=== PATIENT | male | born 1960 | race Caucasian/White ===

== ENCOUNTER → 2019-12-31 10:59 | Outpatient (CLI) | payer OTHER, MEDICARE, SELFPAY ==
[2020-01-02 06:16] LABS: COVID19 Sendout Not Detected (Not Detect)
== END ==
PROVIDERS: Family Provider Family Medicine; PCP Family Medicine; Visit Provider Physician Assistant
DX: Z11.59 Encounter for screening for other viral diseases (principal)
CPT/HCPCS: 87635

== ENCOUNTER → 2021-07-13 09:07 | Outpatient (CLI) | payer OTHER, MEDICARE, SELFPAY | PROVIDERS: Family Provider Family Medicine; Referring Provider Family Medicine; Visit Provider Family Medicine | DX: Z00.00 Encounter for general adult medical examination without abnormal findings (principal) | CPT/HCPCS: 36415 ==

== ENCOUNTER 2021-08-21 11:46 | Emergency (ER) | payer OTHER, MEDICARE, SELFPAY ==
[2021-08-21] VITALS (7 sets, daily range): BP systolic 127–155; BP diastolic 78–98; PULSE 91–110; RESP 15–24; TEMP 36.4; O2SAT 96–99; BMI 34.8
--- NOTE | 2021-08-21 12:37 | DI.CT.S_ITS ---
PROCEDURE: CT HEAD/BRAIN WO CON INDICATIONS: covid + sinc 08/10, double vision x 48 hours TECHNIQUE: Noncontrast 4.5 mm thick angled axial sections acquired from the foramen magnum to the vertex, with coronal and sagittal reformats. For radiation dose reduction, the following was used: automated exposure control, adjustment of mA and/or kV according to patient size. COMPARISON: None. FINDINGS: Image quality: Excellent. CSF spaces: Basal cisterns are patent. No extra-axial fluid collections. Ventricles are normal in size and shape. Incidental note is made of the presence of prominent calcification involving the anterior falx. Brain: No midline shift. No intracranial masses or hemorrhage. Barba-white matter interface is normal. Skull and face: Calvarium and visualized facial bones are intact, without suspicious lesions. Sinuses: Visualized sinuses and mastoids are clear. IMPRESSION: No evidence of acute intracranial process. Dictated by: Alf Navarro M.D. on 08/21/2021 at 12:58 Approved by: Alf Navarro M.D. on 08/21/2021 at 12:59
[2021-08-21 13:01] LABS: INR 1.1 (0.9-1.3); Prothrombin Time 12.1 SECONDS (10.1-12.7)
[2021-08-21 13:04] LABS: PTT Partial Thromboplastin Tim 35 SECONDS (26.4-36.2)
[2021-08-21 13:05] LABS: Alanine Aminotransferase 35 IU/L (<50); Albumin 4.6 g/dL (3.5-5.0); Albumin Globulin Ratio 1.4 (1.0-2.8); Alkaline Phosphatase 80 U/L (38-126); Aspartate Aminotransferase 28 IU/L (17-59); BUN Creatinine Ratio 12.3 (6-22); Bilirubin Total 0.7 mg/dL (0.2-1.3); Blood Urea Nitrogen 13 mg/dL (9-20); Calcium 8.8 mg/dL (8.4-10.2); Carbon Dioxide 27 mmol/L (22-32); Chloride 104 mmol/L (98-107); Creatine Kinase 63 U/L (55-170); Estimated Glomerular Filt Rate > 60 mL/min (>60); Globulin 3.2 g/dL (1.7-4.1); Glucose 307 mg/dL (80-110); HEMOLYSIS 17 (0-50); Potassium 4.5 mmol/L (3.4-5.1); Sodium 138 mmol/L (137-145); Total Protein 7.8 g/dL (6.3-8.2)
[2021-08-21 13:11] LABS: Add Manual Diff / Slide Review NO; Basophils Absolute Auto 100 /uL (0-100); Basophils Percent Auto 1.2 % (0-2); Eosinophils Absolute Auto 100 /uL (0-450); Eosinophils Percent Auto 1.5 % (2-4); Hematocrit 46.3 % (41-53); Hemoglobin 16.4 g/dL (13.5-17.5); Lymphocytes Absolute Auto 2000 /uL (1100-4500); Lymphocytes Percent Auto 22.4 % (25-40); Mean Corpuscular HGB Conc 35.3 % (30-36); Mean Corpuscular Hemoglobin 29.7 PG (26-34); Mean Corpuscular Volume 83.9 fL (80-100); Monocytes Absolute Auto 600 /uL (0-900); Monocytes Percent Auto 7.4 % (3-14); Neutrophils Absolute Auto 5900 /uL (1500-7000); Neutrophils Percent Auto 67.5 % (50-75); Platelet Count 207 X10^3/uL (150-400); Red Blood Cell Count 5.52 X10^6/uL (4.5-5.9); Red Cell Distribution Width 13.8 % (11.6-14.8); White Blood Cell Count 8.7 X10^3/uL (4.5-11.0)
[2021-08-21 13:17] LABS: Troponin I < 0.012 ng/mL (0.01-0.034)
[2021-08-21 16:06] LABS: UR Morphine/Opiate cutoff 300 Negative (Negative); Ur Creatinine Normal (Normal); Ur Specific Gravity Normal (Normal); Urine Amphetamines Negative (Negative); Urine Barbiturates Negative (Negative); Urine Benzodiazepines Negative (Negative); Urine Cocaine Negative (Negative); Urine MDMA Negative (Negative); Urine Methadone Negative (Negative); Urine Methamphetamines Negative (Negative); Urine Oxycodone Positive (Negative); Urine Phencyclidine Negative (Negative); Urine Tetrahydrocannabinol Negative (Negative); Urine Tricyclic Antidepressant Negative (Negative); Urine pH Normal (Normal)
[2021-08-21 16:08] LABS: C-Reactive Protein Quant 0.9 mg/dL (<1.0)
--- NOTE | 2021-08-21 16:15 | DI.MRI.S_ITS ---
PROCEDURE: MR STROKE Pre- and post-contrast brain MRI, non-contrast brain MR angiogram, pre- and postcontrast neck MR angiogram INDICATIONS: 3 days of double vision, negative head CT TECHNIQUE: Brain: Noncontrast axial T1 spin echo, axial T2 fast spin echo, sagittal and axial FLAIR, coronal T2 fast spin echo, axial gradient echo, axial diffusion and ADC through the brain. After the administration of contrast, axial 3D VIBE of the cranial vasculature and brain. Brain MRA: Non-contrast 3-D time of flight MR angiogram, with multiple gvllnlm-evarhiicd-mmeqovzvtl (MIP) reformats performed. Neck MRA: Axial and sagittal TruFISP through the neck. Coronal dynamic MR angiogram during administration of contrast in the arterial and venous phases, with 3-dimenstional qgajcgm-vqnbfkxzp-bgquertake (MIP) reformats constructed from subtraction images. COMPARISON: None. FINDINGS: Image quality: Excellent. BRAIN: CSF spaces: Ventricles are normal in size and shape. Basal cisterns are patent. No extra-axial fluid collections. Brain: No intracranial bleeds or mass effects. Barba-white matter interface is normal. Diffusion weighted images show no acute ischemic insults. Brainstem appears normal. Normal intravascular flow voids are present. No abnormal intracranial enhancement. Skull and face: Calvarial marrow signal is normal. Orbits appear normal. Sinuses: Sinuses and mastoids are clear. BRAIN MR ANGIOGRAM: Anterior circulation: Intracranial internal carotid arteries are normal in size and enhancement. The flow within the paired anterior cerebral arteries is normal and symmetric. The flow within the middle cerebral arteries is normal and symmetric. The anterior communicating artery is seen. No stenoses, occlusions, or aneurysms. Posterior circulation: The visualized portions of the vertebral arteries demonstrate normal caliber, and join to form a normal appearing basilar artery. 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 The P2 segment is supplied by a widely patent posterior communicating artery. Remainder of the distal vasculature unremarkable. No stenoses, occlusions, or aneurysms. NECK MR ANGIOGRAM: Carotids: Great vessels demonstrate a conventional anatomy as they arise from the aortic arch. The origins of the common carotid arteries appear patent. The calibers and courses of both common carotid arteries are normal. The bifurcation regions appear normal bilaterally. The internal carotid arteries demonstrate normal course and caliber. Posterior circulation: The origins of the vertebral arteries appear patent. More superior portions of both vertebral arteries demonstrate normal course and caliber, and join to form a normal appearing basilar artery. Miscellaneous: Subclavian arteries appear patent. Pre-contrast images through the neck show no soft tissue abnormalities. IMPRESSION: 1. Unremarkable MRI of the brain without acute infarct, hemorrhage or mass lesion. 2. Normal MR angiogram of the brain without large vessel occlusion, aneurysm or vascular malformation 3. Normal MR angiogram of the neck. No stenosis. Approved by: Javid Dominguez M.D. on 08/21/2021 at 17:02
[2021-08-21 16:16] LABS: Erythrocyte Sedimentation Rate 4 MM/HR (0-15)
--- NOTE | 2021-08-21 16:20 | ED.NEUROSD ---
HPI - Neuro Symptoms/Deficit <Ethan Jimenes PA-C - Last Filed: 08/21/21 19:25> General Chief Complaint: Neuro Symptoms/Deficit Stated Complaint: phys. referred; covid and seeing double 3 days Time Seen by Provider: 08/21/21 15:35 Source: patient Mode of arrival: Ambulatory History of Present Illness HPI Narrative: This is a 61-year-old male presenting to the emergency department due to 3 days of double vision. States that the double vision is only present when he uses both eyes but when he closes 1 eye the double vision resolves. Patient states that he was diagnosed with COVID 11 days ago as well. Patient denies any headaches, slurred speech, weakness, dizziness, or any other concerning signs or symptoms. States he has a history of a ?tumor in the head? but was unable to elaborate. On Anticoagulants: No Related Data Home Medications Medication Instructions Recorded Confirmed lisinopril 20 mg tablet 20 mg PO DAILY 01/08/20 07/09/21 oxycodone 10 mg tablet,crush 10 mg PO ONCE tab 01/08/20 07/09/21 resistant,extended release 12 hr (OxyContin) oxycodone 5 mg tablet 5 mg PO BID PRN 01/08/20 07/09/21 tamsulosin 0.4 mg capsule 0.4 mg PO BEDTIME 01/08/20 07/09/21 Respironics DreamStation BIPAP 07/09/21 07/09/21 insulin glargine 100 unit/mL (3 50 unit SUBCUT BID ml 07/09/21 07/09/21 mL) subcutaneous pen Allergies Allergy/AdvReac Type Severity Reaction Status Date / Time No Known Drug Allergies Allergy Verified 08/21/21 12:36 Review of Systems <Ethan Jimenes PA-C - Last Filed: 08/21/21 19:25> Review of Systems Narrative: See HPI Hematologic/Lymphatic On Anticoagulants: No Patient History <Ethan Jimenes PA-C - Last Filed: 08/21/21 19:25> Medical History 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 Well-developed patient, in mild distress. HEAD: Atraumatic. Normocephalic. EYES: Pupils equal round and reactive. Extraocular motions intact. No scleral icterus. No injection or drainage. Very slightly delayed tracking of the right pupil although no obvious abnormalities noted. ENT: Nose without bleeding, purulent drainage. Throat without erythema, tonsillar hypertrophy or exudate. Airway patent. NECK: Trachea midline. Non tender CARDIOVASCULAR: Regular rate and rhythm without murmurs, gallops, or rubs. RESPIRATORY: Clear to auscultation. Breath sounds equal bilaterally. No wheezes, rales, or rhonchi. GASTROINTESTINAL: Abdomen soft, non-tender, nondistended. EXTREMITIES: No edema or joint tenderness. BACK: Nontender without deformity or crepitance. No flank tenderness. NEURO: AOx3. Cranial nerves 2-12 intact. NIH score 0. SKIN: No rash or erythema of visible areas Initial Vital Signs Initial Vital Signs: Vital Signs Temperature 97.6 F 08/21/21 12:31 Pulse Rate 110 H 08/21/21 12:31 Respiratory Rate 24 08/21/21 12:31 Blood Pressure 148/98 H 08/21/21 12:31 Pulse Oximetry 98 08/21/21 12:31 <Shellie Carmichael DO - Last Filed: 08/21/21 20:39> Initial Vital Signs Initial Vital Signs: Vital Signs Temperature 97.6 F 08/21/21 12:31 Pulse Rate 110 H 08/21/21 12:31 Respiratory Rate 24 08/21/21 12:31 Blood Pressure 148/98 H 08/21/21 12:31 Pulse Oximetry 98 08/21/21 12:31 Course <Ethan Jimenes PA-C - Last Filed: 08/21/21 19:25> Orders Ordered: ED Orders 08/21/21 12:37 CT head/brain wo con Stat EKG-12 Lead Stat 08/21/21 12:43 CRP [C-Reactive Protein Quant] Stat Complete Blood Count AUTO DIFF Stat Comprehensive Metabolic Panel Stat ESR [Erythrocyte Sedimentation Rate] Stat Partial Thromboplastin Time Stat Prothrombin Time INR Stat Troponin & CK Cardiac Panel Stat 08/21/21 15:46 Urine Drug Screen, Rapid Stat 08/21/21 16:15 MR stroke Stat Vital Signs Vital signs: Vital Signs - 8 hr 08/21/21 14:55 08/21/21 15:00 08/21/21 15:38 Pulse Rate 98 H 100 H 97 H Respiratory Rate Blood Pressure Pulse Oximetry 98 96 99 08/21/21 15:40 08/21/21 16:00 08/21/21 16:30 Pulse Rate 97 H 96 H 91 H Respiratory Rate 15 15 Blood Pressure 155/96 H 136/89 127/78 Pulse Oximetry 99 98 98 <Shellie Carmichael DO - Last Filed: 08/21/21 20:39> Orders Ordered: ED Orders 08/21/21 12:37 CT head/brain wo con Stat EKG-12 Lead Stat 08/21/21 12:43 CRP [C-Reactive Protein Quant] Stat Complete Blood Count AUTO DIFF Stat Comprehensive Metabolic Panel Stat ESR [Erythrocyte Sedimentation Rate] Stat Partial Thromboplastin Time Stat Prothrombin Time INR Stat Troponin & CK Cardiac Panel Stat 08/21/21 15:46 Urine Drug Screen, Rapid Stat 08/21/21 16:15 MR stroke Stat Vital Signs Vital signs: Vital Signs - 8 hr 08/21/21 14:55 08/21/21 15:00 08/21/21 15:38 Pulse Rate 98 H 100 H 97 H Respiratory Rate Blood Pressure Pulse Oximetry 98 96 99 08/21/21 15:40 08/21/21 16:00 08/21/21 16:30 Pulse Rate 97 H 96 H 91 H Respiratory Rate 15 15 Blood Pressure 155/96 H 136/89 127/78 Pulse Oximetry 99 98 98 MDM - Neuro Symptoms/Deficit <Ethan Jimenes PA-C - Last Filed: 08/21/21 19:25> Lab Data Result diagrams: 08/21/21 12:43 08/21/21 12:43 Labs: Lab Results 08/21/21 08/21/21 08/21/21 Range/Units 12:43 12:43 12:43 WBC 8.7 (4.5-11.0) X10^3/uL RBC 5.52 (4.5-5.9) X10^6/uL Hgb 16.4 (13.5-17.5) g/dL Hct 46.3 (41-53) % MCV 83.9 (80-100) fL MCH 29.7 (26-34) PG MCHC 35.3 (30-36) % RDW 13.8 (11.6-14.8) % Plt Count 207 (150-400) X10^3/uL Neut % (Auto) 67.5 (50-75) % Lymph % (Auto) 22.4 L (25-40) % [place] % (Auto) 7.4 (3-14) % Eos % (Auto) 1.5 L (2-4) % Baso % (Auto) 1.2 (0-2) % Neut # (Auto) 5900 (8979-6063) /uL Lymph # (Auto) 2000 (9785-3496) /uL [place] # (Auto) 600 (0-900) /uL Eos # (Auto) 100 (0-450) /uL Baso # (Auto) 100 (0-100) /uL ESR (0-15) MM/HR PT 12.1 (10.1-12.7) SECONDS INR 1.1 (0.9-1.3) APTT 35 (26.4-36.2) SECONDS Sodium 138 (137-145) mmol/L Potassium 4.5 (3.4-5.1) mmol/L Chloride 104 (98-107) mmol/L Carbon Dioxide 27 (22-32) mmol/L BUN 13 (9-20) mg/dL Creatinine 1.06 (0.66-1.25) mg/dL Estimated GFR > 60 (>60) mL/min BUN/Creatinine Ratio 12.3 (6-22) Glucose 307 H (80-110) mg/dL Calcium 8.8 (8.4-10.2) mg/dL Total Bilirubin 0.7 (0.2-1.3) mg/dL AST 28 (17-59) IU/L ALT 35 (<50) IU/L Alkaline Phosphatase 80 (38-126) U/L Total Creatine Kinase 63 (55-170) U/L CK-MB (CK-2) TNP CK-MB (CK-2) Rel Index TNP Troponin I < 0.012 (0.01-0.034) ng/mL C-Reactive Protein (<1.0) mg/dL Total Protein 7.8 (6.3-8.2) g/dL Albumin 4.6 (3.5-5.0) g/dL Globulin 3.2 (1.7-4.1) g/dL Albumin/Globulin Ratio 1.4 (1.0-2.8) U Opiates 300ng/mL cut (Negative) Ur Oxycodone Screen (Negative) Urine Methadone Screen (Negative) Ur Barbiturates Screen (Negative) U Tricyclic Antidepress (Negative) Ur Phencyclidine Scrn (Negative) Ur Amphetamines Screen (Negative) U Methamphetamines Scrn (Negative) Ur MDMA Scrn (Ecstasy) (Negative) U Benzodiazepines Scrn (Negative) Urine Cocaine Screen (Negative) U Marijuana (THC) Screen (Negative) 08/21/21 08/21/21 08/21/21 Range/Units 12:43 12:43 15:46 WBC (4.5-11.0) X10^3/uL RBC (4.5-5.9) X10^6/uL Hgb (13.5-17.5) g/dL Hct (41-53) % MCV (80-100) fL MCH (26-34) PG MCHC (30-36) % RDW (11.6-14.8) % Plt Count (150-400) X10^3/uL Neut % (Auto) (50-75) % Lymph % (Auto) (25-40) % [place] % (Auto) (3-14) % Eos % (Auto) (2-4) % Baso % (Auto) (0-2) % Neut # (Auto) (6477-6086) /uL Lymph # (Auto) (2248-8319) /uL [place] # (Auto) (0-900) /uL Eos # (Auto) (0-450) /uL Baso # (Auto) (0-100) /uL ESR 4 (0-15) MM/HR PT (10.1-12.7) SECONDS INR (0.9-1.3) APTT (26.4-36.2) SECONDS Sodium (137-145) mmol/L Potassium (3.4-5.1) mmol/L Chloride (98-107) mmol/L Carbon Dioxide (22-32) mmol/L BUN (9-20) mg/dL Creatinine (0.66-1.25) mg/dL Estimated GFR (>60) mL/min BUN/Creatinine Ratio (6-22) Glucose (80-110) mg/dL Calcium (8.4-10.2) mg/dL Total Bilirubin (0.2-1.3) mg/dL AST (17-59) IU/L ALT (<50) IU/L Alkaline Phosphatase (38-126) U/L Total Creatine Kinase (55-170) U/L CK-MB (CK-2) CK-MB (CK-2) Rel Index Troponin I (0.01-0.034) ng/mL C-Reactive Protein 0.9 (<1.0) mg/dL Total Protein (6.3-8.2) g/dL Albumin (3.5-5.0) g/dL Globulin (1.7-4.1) g/dL Albumin/Globulin Ratio (1.0-2.8) U Opiates 300ng/mL cut Negative (Negative) Ur Oxycodone Screen Positive H (Negative) Urine Methadone Screen Negative (Negative) Ur Barbiturates Screen Negative (Negative) U Tricyclic Antidepress Negative (Negative) Ur Phencyclidine Scrn Negative (Negative) Ur Amphetamines Screen Negative (Negative) U Methamphetamines Scrn Negative (Negative) Ur MDMA Scrn (Ecstasy) Negative (Negative) U Benzodiazepines Scrn Negative (Negative) Urine Cocaine Screen Negative (Negative) U Marijuana (THC) Screen Negative (Negative) Urine Dip Bedside Urine Glucose 500 mg/dl Bedside Urine Bilirubin - Negative Bedside Urine Ketone - Negative Urine Specific [place] 1.025 Bedside Urine Occult Blood - Negative Bedside Urine pH 6.0 Bedside Urine Protein - Negative Bedside Urine Urobilinogen - Negative Bedside Urine Nitrite - Negative Bedside Urine Leukocytes - Negative Esterase Imaging Data CT scan - head: Radiologist's Impression: [address] [id number] Resonance ReportSigned Patient: Joni Smiley NAFISA#: [id number]: 1960cct:[id number]/Sex: 61 / MDate of Service: 08/21/21Loc: EDAccession Number: [id number] Procedure: MR stroke Ordering Provider: Ethan Jimenes P.A-C PROCEDURE: MR STROKE Pre- and post-contrast brain MRI, non-contrast brain MR angiogram, pre- and postcontrast neck MR angiogram INDICATIONS: 3 days of double vision, negative head CT TECHNIQUE: Brain: Noncontrast axial T1 spin echo, axial T2 fast spin echo, sagittal and axial FLAIR, coronal T2 fast spin echo, axial gradient echo, axial diffusion and ADC through the brain. After the administration of contrast, axial 3D VIBE of the cranial vasculature and brain. Brain MRA: Non-contrast 3-D time of flight MR angiogram, with multiple qkkklza-mkhblsura-himlkgmmsl (MIP) reformats performed. Neck MRA: Axial and sagittal TruFISP through the neck. Coronal dynamic MR angiogram during administration of contrast in the arterial and venous phases, with 3-dimenstional qhpttws-cnogvqokh-nngztwrdwk (MIP) reformats constructed from subtraction images. COMPARISON: None. FINDINGS: Image quality: Excellent. BRAIN: CSF spaces: Ventricles are normal in size and shape. Basal cisterns are patent. No extra-axial fluid collections. Brain: No intracranial bleeds or mass effects. Barba-white matter interface is normal. Diffusion weighted images show no acute ischemic insults. Brainstem appears normal. Normal intravascular flow voids are present. No abnormal intracranial enhancement. Skull and face: Calvarial marrow signal is normal. Orbits appear normal. Sinuses: Sinuses and mastoids are clear. BRAIN MR ANGIOGRAM: Anterior circulation: Intracranial internal carotid arteries are normal in size and enhancement. The flow within the paired anterior cerebral arteries is normal and symmetric. The flow within the middle cerebral arteries is normal and symmetric. The anterior communicating artery is seen. No stenoses, occlusions, or aneurysms. Posterior circulation: The visualized portions of the vertebral arteries demonstrate normal caliber, and join to form a normal appearing basilar artery. 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 The P2 segment is supplied by a widely patent posterior communicating artery. Remainder of the distal vasculature unremarkable. No stenoses, occlusions, or aneurysms. NECK MR ANGIOGRAM: Carotids: Great vessels demonstrate a conventional anatomy as they arise from the aortic arch. The origins of the common carotid arteries appear patent. The calibers and courses of both common carotid arteries are normal. The bifurcation regions appear normal bilaterally. The internal carotid arteries demonstrate normal course and caliber. Posterior circulation: The origins of the vertebral arteries appear patent. More superior portions of both vertebral arteries demonstrate normal course and caliber, and join to form a normal appearing basilar artery. Miscellaneous: Subclavian arteries appear patent. Pre-contrast images through the neck show no soft tissue abnormalities. IMPRESSION: 1. Unremarkable MRI of the brain without acute infarct, hemorrhage or mass lesion. 2. Normal MR angiogram of the brain without large vessel occlusion, aneurysm or vascular malformation 3. Normal MR angiogram of the neck. No stenosis. Approved by: Javid Dominguez M.D. on 08/21/2021 at 17:[address] [id number] Scan ReportSigned Patient: Joni Smiley R#: [id number]: 9Acct:[id number]/Sex: 61 / MDate of Service: 08/21/21Loc: EDAccession Number: [id number] Procedure: CT head/brain wo con Ordering Provider: Shellie Carmichael D.O. PROCEDURE: CT HEAD/BRAIN WO CON INDICATIONS: covid + sinc 08/10, double vision x 48 hours TECHNIQUE: Noncontrast 4.5 mm thick angled axial sections acquired from the foramen magnum to the vertex, with coronal and sagittal reformats. For radiation dose reduction, the following was used: automated exposure control, adjustment of mA and/or kV according to patient size. COMPARISON: None. FINDINGS: Image quality: Excellent. CSF spaces: Basal cisterns are patent. No extra-axial fluid collections. Ventricles are normal in size and shape. Incidental note is made of the presence of prominent calcification involving the anterior falx. Brain: No midline shift. No intracranial masses or hemorrhage. Barba-white matter interface is normal. Skull and face: Calvarium and visualized facial bones are intact, without suspicious lesions. Sinuses: Visualized sinuses and mastoids are clear. IMPRESSION: No evidence of acute intracranial process. Dictated by: Alf Navarro M.D. on 08/21/2021 at 12:58 Approved by: Alf Navarro M.D. on 08/21/2021 at 12:59 [facility] Narrative Medical decision making narrative: This is a 61-year-old male presents to the emergency department due to 3 days of binocular diplopia. CT head negative for acute stroke. MRI of the head and neck ordered which showed no acute abnormalities. Attending physician, Dr. Carmichael, spoke with Dr. Arcos, ophthalmology who advise for outpatient follow-up on Tuesday for further evaluation. Lab work unremarkable. <Shellie Alvino Carmichael, DO - Last Filed: 08/21/21 20:39> Lab Data Labs: Lab Results 08/21/21 08/21/21 08/21/21 Range/Units 12:43 12:43 12:43 WBC 8.7 (4.5-11.0) X10^3/uL RBC 5.52 (4.5-5.9) X10^6/uL Hgb 16.4 (13.5-17.5) g/dL Hct 46.3 (41-53) % MCV 83.9 (80-100) fL MCH 29.7 (26-34) PG MCHC 35.3 (30-36) % RDW 13.8 (11.6-14.8) % Plt Count 207 (150-400) X10^3/uL Neut % (Auto) 67.5 (50-75) % Lymph % (Auto) 22.4 L (25-40) % [place] % (Auto) 7.4 (3-14) % Eos % (Auto) 1.5 L (2-4) % Baso % (Auto) 1.2 (0-2) % Neut # (Auto) 5900 (1872-6917) /uL Lymph # (Auto) 2000 (9646-8055) /uL [place] # (Auto) 600 (0-900) /uL Eos # (Auto) 100 (0-450) /uL Baso # (Auto) 100 (0-100) /uL ESR (0-15) MM/HR PT 12.1 (10.1-12.7) SECONDS INR 1.1 (0.9-1.3) APTT 35 (26.4-36.2) SECONDS Sodium 138 (137-145) mmol/L Potassium 4.5 (3.4-5.1) mmol/L Chloride 104 (98-107) mmol/L Carbon Dioxide 27 (22-32) mmol/L BUN 13 (9-20) mg/dL Creatinine 1.06 (0.66-1.25) mg/dL Estimated GFR > 60 (>60) mL/min BUN/Creatinine Ratio 12.3 (6-22) Glucose 307 H (80-110) mg/dL Calcium 8.8 (8.4-10.2) mg/dL Total Bilirubin 0.7 (0.2-1.3) mg/dL AST 28 (17-59) IU/L ALT 35 (<50) IU/L Alkaline Phosphatase 80 (38-126) U/L Total Creatine Kinase 63 (55-170) U/L CK-MB (CK-2) TNP CK-MB (CK-2) Rel Index TNP Troponin I < 0.012 (0.01-0.034) ng/mL C-Reactive Protein (<1.0) mg/dL Total Protein 7.8 (6.3-8.2) g/dL Albumin 4.6 (3.5-5.0) g/dL Globulin 3.2 (1.7-4.1) g/dL Albumin/Globulin Ratio 1.4 (1.0-2.8) U Opiates 300ng/mL cut (Negative) Ur Oxycodone Screen (Negative) Urine Methadone Screen (Negative) Ur Barbiturates Screen (Negative) U Tricyclic Antidepress (Negative) Ur Phencyclidine Scrn (Negative) Ur Amphetamines Screen (Negative) U Methamphetamines Scrn (Negative) Ur MDMA Scrn (Ecstasy) (Negative) U Benzodiazepines Scrn (Negative) Urine Cocaine Screen (Negative) U Marijuana (THC) Screen (Negative) 08/21/21 08/21/21 08/21/21 Range/Units 12:43 12:43 15:46 WBC (4.5-11.0) X10^3/uL RBC (4.5-5.9) X10^6/uL Hgb (13.5-17.5) g/dL Hct (41-53) % MCV (80-100) fL MCH (26-34) PG MCHC (30-36) % RDW (11.6-14.8) % Plt Count (150-400) X10^3/uL Neut % (Auto) (50-75) % Lymph % (Auto) (25-40) % [place] % (Auto) (3-14) % Eos % (Auto) (2-4) % Baso % (Auto) (0-2) % Neut # (Auto) (6703-4135) /uL Lymph # (Auto) (9937-1242) /uL [place] # (Auto) (0-900) /uL Eos # (Auto) (0-450) /uL Baso # (Auto) (0-100) /uL ESR 4 (0-15) MM/HR PT (10.1-12.7) SECONDS INR (0.9-1.3) APTT (26.4-36.2) SECONDS Sodium (137-145) mmol/L Potassium (3.4-5.1) mmol/L Chloride (98-107) mmol/L Carbon Dioxide (22-32) mmol/L BUN (9-20) mg/dL Creatinine (0.66-1.25) mg/dL Estimated GFR (>60) mL/min BUN/Creatinine Ratio (6-22) Glucose (80-110) mg/dL Calcium (8.4-10.2) mg/dL Total Bilirubin (0.2-1.3) mg/dL AST (17-59) IU/L ALT (<50) IU/L Alkaline Phosphatase (38-126) U/L Total Creatine Kinase (55-170) U/L CK-MB (CK-2) CK-MB (CK-2) Rel Index Troponin I (0.01-0.034) ng/mL C-Reactive Protein 0.9 (<1.0) mg/dL Total Protein (6.3-8.2) g/dL Albumin (3.5-5.0) g/dL Globulin (1.7-4.1) g/dL Albumin/Globulin Ratio (1.0-2.8) U Opiates 300ng/mL cut Negative (Negative) Ur Oxycodone Screen Positive H (Negative) Urine Methadone Screen Negative (Negative) Ur Barbiturates Screen Negative (Negative) U Tricyclic Antidepress Negative (Negative) Ur Phencyclidine Scrn Negative (Negative) Ur Amphetamines Screen Negative (Negative) U Methamphetamines Scrn Negative (Negative) Ur MDMA Scrn (Ecstasy) Negative (Negative) U Benzodiazepines Scrn Negative (Negative) Urine Cocaine Screen Negative (Negative) U Marijuana (THC) Screen Negative (Negative) Urine Dip Bedside Urine Glucose 500 mg/dl Bedside Urine Bilirubin - Negative Bedside Urine Ketone - Negative Urine Specific [place] 1.025 Bedside Urine Occult Blood - Negative Bedside Urine pH 6.0 Bedside Urine Protein - Negative Bedside Urine Urobilinogen - Negative Bedside Urine Nitrite - Negative Bedside Urine Leukocytes - Negative Esterase ECG Data Attestation: I personally reviewed and interpreted this ECG as follows: Interpretation: Sinus rhythm rate of 98 AL was 6 6, QRS of [address] changes noted. MDM Narrative Medical decision making narrative: This is a 61-year-old male presents to the emergency department due to 3 days of binocular diplopia. CT head negative for acute stroke. MRI of the head and neck ordered which showed no acute abnormalities. Attending physician, Dr. Carmichael, spoke with Dr. Arcos, ophthalmology who advise for outpatient follow-up on Tuesday for further evaluation. Lab work unremarkable. Discharge Plan Departure Patient Disposition: Home Clinical Impression: Double vision Activity Restrictions/Additional Instructions: Thank you for coming to the [facility] Emergency Department today. The CT head and the MRI that we took showed no evidence of any kind of stroke or other blockage. We spoke with Ophthalmology for you to follow-up with. Please call Dr. Arcos's office on Tuesday to arrange for an appointment. You may buy an [id number] eye patch to help with his symptoms until then. I hope you feel better soon. Prescriptions: No Action lisinopril 20 mg tablet 20 mg PO DAILY 0RF oxycodone [OxyContin] 10 mg tablet,oral only,ext.rel.12 hr 10 mg PO ONCE 0RF oxycodone 5 mg tablet 5 mg PO BID PRN0RF tamsulosin 0.4 mg capsule 0.4 mg PO BEDTIME 0RF insulin glargine 100 unit/mL (3 mL) insulin pen 50 unit SUBCUT BID 0RF (DME) Respironics DreamStation BIPAP See Rx Instructions .ROUTE .MEDSUPPLY 0RF Rx Instructions: BIPAP Max IPAP: 12 Min EPAP: 4 Max PS: 4 Min PS: 4 DME: Referrals: Erick Arcos MD [Physician] - (61-year-old male with binocular diplopia, CT head and MRI head and neck negative for acute abnormality) Yair Veliz MD [Primary Care Provider] - <Shellie De Oliveira MantemiDO - Last Filed: 08/21/21 20:39> Cosign ED Attending Cosignature Attestation: Patient seen independently evaluated by myself. Patient does appear to have some right cranial nerve palsy possibly cranial nerve 6 on the right. Patient has binocular diplopia which is horizontal. This is been present for 3 days. Patient has not had any other neurologic changes. Exam otherwise reassuring. Head CT is negative, MRI with and without was obtained and shows no acute change. He is hyperglycemic but labs are otherwise reassuring with negative ESR and CRP as well. He was diagnosed with COVID 11 days ago. Discussed with Dr. Arcos with Ophthalmology, if patient does not have any other acute changes, head CT, MRI are negative with no acute lab changes other boateng patient is appropriate for follow-up Tuesday in the office. He can use eye patch as needed for comfort these are often microvascular and no specific additional treatment at this time until seen by Ophthalmology. Patient and I discussed and he is aware return precautions if he has any new acute neurologic changes. All questions answered.
== END 2021-08-21 19:10 | disposition home or self-care (01) ==
PROVIDERS: Emergency Medicine; Emergency Provider Physician Assistant Medical; Family Provider Family Medicine; PCP Family Medicine
DX: H53.2 Diplopia (principal)
CPT/HCPCS: 36415; 70450; 70548; 70553; 80053; 80305; 81003; 82550; 84484; 85025; 85610; 85651; 85730; 86140; 93005; 99284; 99285

== ENCOUNTER → 2022-11-18 14:43 | Outpatient (CLI) | payer OTHER, MEDICARE, SELFPAY ==
--- NOTE | 2022-11-18 | DI.RAD.S_ITS ---
PROCEDURE: XR KNEE RT 3V INDICATIONS: chronic pain of right knee TECHNIQUE: 3 views of the knee were acquired. COMPARISON: None. FINDINGS: Bones: No fractures or dislocations. No suspicious bony lesions. 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 Soft tissues: No joint effusion. No suspicious soft tissue calcifications. IMPRESSION: No fracture. No acute osseous lesion. If symptoms and/or clinical suspicion for pathology persists, further assessment with repeat radiographs (7-10 days) or advanced imaging (e.g. CT, MRI or bone scan) should be considered. Mild tricompartmental osteoarthritis. Dictated by: Martha Arita MD, PhD on 11/18/2022 at 15:28 Approved by: Martha Arita MD, PhD on 11/18/2022 at 15:29
== END ==
PROVIDERS: Family Provider Family Medicine; PCP Family Medicine; Referring Provider Family Medicine; Visit Provider Family Medicine
DX: M17.11 Unilateral primary osteoarthritis, right knee (principal); M25.561 Pain in right knee
CPT/HCPCS: 73562

== ENCOUNTER → 2023-01-28 16:17 | Outpatient (CLI) | payer OTHER, MEDICARE, SELFPAY ==
--- NOTE | 2023-01-28 16:19 | DI.MRI.S_ITS ---
PROCEDURE: MR KNEE RT WO CON INDICATIONS: Pain in right knee TECHNIQUE: Noncontrast sagittal PD fast spin echo and T2 fast spin echo with fat saturation, sagittal 3-D FLASH with fat saturation; coronal T1 spin echo and PD fast spin echo with fat saturation, and axial PD fast spin echo with fat saturation through the knee. COMPARISON: None. FINDINGS: Image quality: Excellent. Menisci: Complex oblique tear involvin posterior horn of medial meniscus at extending to both superior and inferior articulating surface is seen. The lateral meniscus is intact. The meniscal root ligaments appear intact. Cruciate ligaments: The anterior and posterior cruciate ligaments appear intact. Medial structures: The medial collateral ligament appears mildly thickened. The posterior oblique ligament, semimembranosus tendon insertions, oblique popliteal ligament, and meniscocapsular junction appear intact. Visualized portions of the pes anserinus tendons appear normal. No abnormal bursal fluid. Lateral structures: The lateral collateral ligament, long and short heads of the biceps femoris tendon appear intact. The popliteus tendon appears normal; the popliteofibular ligament appears intact. Iliotibial band appears normal. Anterior structures: The quadriceps and patellar tendons appear intact. Patellar alignment is normal. No femoral trochlear dysplasia or ventral trochlear prominence. No edema in the infrapatellar fat pad. Bones and cartilage: No bone marrow contusions or fractures. 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 Joint space: There is small knee joint fluid. No Power's cyst. Normal appearing synovial plicae are incidentally noted. IMPRESSION: 1. Complex oblique tear involving posterior horn of medial meniscus extending to both superior and inferior articulating surfaces. The lateral meniscus is intact. 2. The cruciate ligaments are intact. 3. Low-grade MCL sprain. 4. 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 No fracture or dislocation. Small joint effusion, no loose bodies. Dictated by: Tariq Ha M.D. on 01/31/2023 at 9:56 Approved by: Tariq Ha M.D. on 01/31/2023 at 9:58
== END ==
PROVIDERS: Family Provider Family Medicine; PCP Family Medicine; Referring Provider Orthopaedic Surgery; Visit Provider Orthopaedic Surgery
DX: S83.231A Complex tear of medial meniscus, current injury, right knee, initial encounter (principal); S83.411A Sprain of medial collateral ligament of right knee, initial encounter; M17.11 Unilateral primary osteoarthritis, right knee; M22.41 Chondromalacia patellae, right knee; M25.461 Effusion, right knee; M25.561 Pain in right knee
CPT/HCPCS: 73721

== ENCOUNTER → 2023-09-08 08:56 | Outpatient (CLI) | payer BC, MEDICARE, SELFPAY ==
--- NOTE | 2023-09-08 | DI.US.S_ITS ---
PROCEDURE: US ABDOMEN COMPLETE INDICATIONS: Right upper quadrant pain TECHNIQUE: Real-time scanning was performed of the abdominal and retroperitoneal organs, with image documentation. COMPARISON: [facility], US, ABDOMEN COMPLETE, 01/12/2013, 11:13. FINDINGS: Liver: The liver demonstrates enlarged size. The liver demonstrates generalized moderately to prominently increased echogenicity. This decreases ultrasound sensitivity for detection of hepatic masses. The main portal vein demonstrates normal size and demonstrates normal appearing, hepatopetal flow. Gallbladder: No findings of gallstones or sludge are seen. The gallbladder wall is not thickened, measuring 3 mm or less. No specific pericholecystic fluid is seen. The sonographic Culver sign is negative. Biliary ducts: Intrahepatic bile ducts are non-dilated. Extrahepatic bile duct caliber measures 4 mm. Normal is 6-7 mm or less in diameter, or 10 mm or less post-cholecystectomy. Pancreas: Visualized portions of the pancreas are sonographically normal. Spleen: The spleen measures near the upper limits of normal at 12.3 x 111.7 x 4.7 cm, with a calculated volume of 354 cc. Kidneys: Kidneys are normal in size and echotexture. Right kidney measures 12 cm long; left kidney measures 10.8 cm long. No hydronephrosis or nephrolithiasis. No solid masses. Within the right kidney at the superior pole, there is a 6.1 x 5.7 x 5.8 cm cyst, which previously measured 3.7 x 3.4 x 3.8 cm. Aorta: Visualized aorta is normal in caliber at less than 3 cm. Iliacs: Proximal common iliac arteries are normal in caliber at less than 2.5 cm. IVC: Intrahepatic inferior vena cava is patent. Miscellaneous: No free abdominal fluid. IMPRESSION: No imaging explanation is found for this patient's presenting symptoms. The gallbladder demonstrates a normal sonographic appearance. No biliary dilatation is seen. Right kidney simple cyst, without hydronephrosis. The simple cyst has increased in size compared to the prior. Enlarged, fatty liver noted. Spleen size near the upper limits of normal. Dictated by: Pj Mark M.D. on 09/08/2023 at 10:13 Approved by: Pj Mark M.D. on 09/08/2023 at 10:14
== END ==
PROVIDERS: Family Provider Family Medicine; PCP Family Medicine; Referring Provider Family Medicine; Visit Provider Family Medicine
DX: R10.11 Right upper quadrant pain (principal); N28.1 Cyst of kidney, acquired; K76.0 Fatty (change of) liver, not elsewhere classified
CPT/HCPCS: 76700